=== PATIENT | male | born 1980 | race African-American/Black ===

== ENCOUNTER 2021-03-01 07:01 | Emergency (ER) | payer SELFPAY ==
[~2021-03-01] VITALS: Ht 182.9 cm; Wt 86.0 kg
[2021-03-01] MEDS ORDERED: SODIUM CHLORIDE 0.9% 1,000 ML IV ONE (07:15)
[2021-03-01 07:48] LABS: BASOPHILS % 0.8 % (0.0-2.0); EOSINOPHILS % 3.7 % (0.0-5.0); HEMOGLOBIN. 14.3 g/dL (14.0-18.0); LYMPHOCYTES % 33.6 % (20.0-50.0); MEAN CORPUSCULAR HEMOGLOBIN 31.6 pg (28.0-32.0); MEAN CORPUSCULAR VOLUME 92.5 fL (80.0-94.0); MEAN PLATELET VOLUME 9.2 fl (7.4-10.4); MONOCYTES % 9.3 % (2.0-8.0); NEUTROPHILS % 52.6 % (40.0-76.0); PLATELET 198 x1000/uL (130-400); RED BLOOD CELL COUNT 4.54 mill/uL (4.7-6.1); RED CELL DISTRIBUTION WIDTH 14.1 % (11.6-14.6)
[2021-03-01 07:58] LABS: CHLORIDE 110 mEq/L (98-107)
[2021-03-01 08:02] LABS: ETHANOL BLOOD < 10 mg/dL
[2021-03-01 17:30] VITALS: BP 120/74
[2021-03-03 05:07] LABS: HIV 1 ABS Positive (Negative); HIV 2 ABS Negative (Negative); HIV SCREEN 4G Reactive (Non Reactive); INTERPRETATION HIV-1 Positive (.)
== END 2021-03-01 17:35 | disposition left against medical advice (07) ==
LOC: ER 07:26
DX: G92.9 Unspecified toxic encephalopathy (principal); F19.90 Other psychoactive substance use, unspecified, uncomplicated; B20 Human immunodeficiency virus [HIV] disease
CPT/HCPCS: 36415; 80053; 80307; 80320; 80329; 85025; 86701; 86702; 86703; 87389; 93005; 96360; 96361; 99285; J7030; G0480